=== PATIENT | female | born 1975 | race African-American/Black ===

== ENCOUNTER 2019-03-07 13:04 | Emergency (ER) | payer BC ==
[~2019-03-07] VITALS: Ht 175.3 cm; Wt 127.0 kg
--- NOTE | 2019-03-07 13:10 | NUR ---
ED Nurse Note: Pt was admitted to ED with the c/o lower abdominal pain x 4 days, verbalized she's .
--- NOTE | 2019-03-07 13:18 | NUR ---
ED Nurse Note: Placed pt on bed, sitting, on stable condition. Established IV line, blood was drawn.
--- NOTE | 2019-03-07 13:20 | NUR ---
ED Nurse Note: Specimen was sent to labs. Unable to collect urine specimen at this time.
[2019-03-07] MEDS ORDERED: Metoclopramide 10mg/2ml Inj IVP ONE (13:30)
--- NOTE | 2019-03-07 13:30 | NUR ---
ED Nurse Note: Started on IV hydration of NS 1liter; patent and infusing well.
--- NOTE | 2019-03-07 13:51 | NUR ---
ED Nurse Note: Pt went for US.
[2019-03-07 13:54] VITALS: BP 128/73
--- NOTE | 2019-03-07 14:29 | NUR ---
ED Nurse Note: Pt returned from US in stable condition.
--- NOTE | 2019-03-07 14:30 | NUR ---
ED Nurse Note: Pt return back from US, on stable condition.
[2019-03-07 14:45] LABS: ANION GAP 11 mmol/L (5-15); BLOOD UREA NITROGEN 8 mg/dL (7-18); CARBON DIOXIDE 24 MMOL/L (21-32); CHLORIDE 101 MMOL/L (98-107); CREATININE 0.6 MG/DL (0.55-1.30); POTASSIUM 3.7 MMOL/L (3.5-5.1); SODIUM 136 MMOL/L (136-145)
--- NOTE | 2019-03-07 14:45 | NUR ---
ED Nurse Note: Recollected blood for repeat CBC. Able to collect urine specimen; sent to labs.
[2019-03-07 14:49] LABS: ALANINE AMINOTRANSFERASE 21 U/L (12-78); ALBUMIN/GLOBULIN RATIO 0.7 (1.0-2.7); ALKALINE PHOSPHATASE 87 U/L (46-116); ASPARTATE AMINO TRANSFERASE 17 U/L (15-37); BILIRUBIN,TOTAL 0.2 MG/DL (0.2-1.0)
--- NOTE | 2019-03-07 14:54 | NUR ---
ED Nurse Note: Received hand-off report from AKHIL Ferrera.
--- NOTE | 2019-03-07 15:07 | NUR ---
ED Nurse Note: Confirmed repeat CBC with lab
[2019-03-07 15:31] LABS: BASOPHILS % (AUTO) 1.2 % (0.0-2.0); EOSINOPHILS % (AUTO) 1.4 % (0.0-3.0); HEMATOCRIT 32.4 % (37.0-47.0); LYMPHOCYTES % (AUTO) 33.6 % (20.0-45.0); MEAN CORPUSCULAR VOLUME 78 FL (80-99); MONOCYTES % (AUTO) 8.1 % (1.0-10.0); NEUTROPHILS % (AUTO) 55.7 % (45.0-75.0); PLATELET COUNT 228 K/UL (150-450); RED BLOOD COUNT 4.17 M/UL (4.20-5.40); RED CELL DISTRIBUTION WIDTH 13.3 % (11.6-14.8); WHITE BLOOD COUNT 5.3 K/UL (4.8-10.8)
[2019-03-07] MEDS ORDERED: TYLENOL EXTRA500 MG ORAL (15:43)
--- NOTE | 2019-03-07 15:43 | Emergency Room Report ---
History of Present Illness General Chief Complaint: Abdominal Pain Source: Patient Present Illness HPI 43-year-old female who is 4 months and G5, here complaining of 2 days of left lower quadrant abdominal pain rating a 7 out of 10 without radiation. Patient reports that she has a history of fibroids on the same side and reports that they are obscuring the left ovary. Patient had her last visit with [facility] 2 weeks ago and regular. Denies any vaginal discharge, spotting, bleeding, chest pain, headache, dizziness, syncope, shortness of breath. Has not taken medication for symptom relief. Patient is guarding in the left lower quadrant. Patient reports that she has history of 3 miscarriages which occurred around the same time when she was almost 3 or 4 months . Patient is compliant with taking vitamins, does not smoke, nor drink alcohol. Reports that the pain started when she was sitting at work Allergies: Coded Allergies: CODEINE (Verified Allergy, Unknown, 03/07/19) Patient History Past Medical History: see triage record Past Surgical History: unable to obtain Pertinent Family History: none Now: Yes : 5 Para: 1 Immunizations: UTD Reviewed Nursing Documentation: PMH: Agreed; PSxH: Agreed Nursing Documentation-PMH Past Medical History: No History, Except For Hx Asthma: Yes Review of Systems All Other Systems: negative except mentioned in HPI Physical Exam Vital Signs Date Time Temp Pulse Resp B/P (MAP) Pulse Ox O2 Delivery O2 Flow Rate FiO2 03/07/19 13:07 98.4 78 16 128/73 (91) 99 03/07/19 13:54 Room Air 100 Sp02 EP Interpretation: reviewed, normal General Appearance: no apparent distress, alert, GCS 15, non-toxic Head: normocephalic, atraumatic Eyes: bilateral eye normal inspection, bilateral eye PERRL ENT: hearing grossly normal, normal pharynx, no angioedema, normal voice Neck: full range of motion, supple, thyroid normal, no meningismus, supple/symm /no masses Respiratory: chest non-tender, lungs clear, normal breath sounds, no rhonchi, no respiratory distress, no retraction, speaking full sentences Cardiovascular #1: regular rate, rhythm, no edema, no murmur, normal capillary refill Cardiovascular #2: 2+ femoral (R), 2+ femoral (L) Gastrointestinal: normal bowel sounds, non tender, soft, no rebound, distended - Gravid, guarding - Left lower quadrant Rectal: deferred Genitourinary: no CVA tenderness Musculoskeletal: back normal, normal range of motion, no calf tenderness, pelvis stable, gait/station normal, non-tender Neurologic: alert, motor strength/tone normal, oriented x3, sensory intact, responsive, speech normal Psychiatric: judgement/insight normal, memory normal, mood/affect normal, no suicidal/homicidal ideation Skin: no rash Lymphatic: no adenopathy Medical Decision Making PA Attestation All my diagnosis and treatment plans were reviewed ad discussed with my supervising physician Dr. Bryant Diagnostic Impression: Primary Impression: Abdominal pain during Additional Impression: Uterine fibroid ER Course 43-year-old female who is 4 months and G5, here complaining of 2 days of left lower quadrant abdominal pain rating a 7 out of 10 without radiation. Patient reports that she has a history of fibroids on the same side and reports that they are obscuring the left ovary. Patient had her last visit with [facility] 2 weeks ago and regular. Denies any vaginal discharge, spotting, bleeding, chest pain, headache, dizziness, syncope, shortness of breath. Has not taken medication for symptom relief. Patient is guarding in the left lower quadrant. Patient reports that she has history of 3 miscarriages which occurred around the same time when she was almost 3 or 4 months . Patient is compliant with taking vitamins, does not smoke, nor drink alcohol. Reports that the pain started when she was sitting at work Ddx considered but are not limited to: appendicitis, cholecystis, gastritis, gastroenteritis, UTI, pyelonephritis, SBO, diverticulitis, threatened , ectopic , spontaneous , abdominal pain during , uterine fibroids Vital signs: are WNL, pt. is afebrile H&PE are most consistent with: Uterine fibroids, abdominal pain during ORDERS: CBC, CP, type and screen, UA, beta-hCG, OB ultrasound, Tylenol ED INTERVENTIONS: NS bolus, Reglan DISCHARGE: At this time pt. is stable for d/c to home. Will provide printed patient care instructions, and any necessary prescriptions. Care plan and follow up instructions have been discussed with the patient prior to discharge. Patient to follow-up with her primary care provider and [facility] if worsening symptoms return to emergency room sooner. Most likely the pain is secondary to uterine fibroids CT/MRI/US Diagnostic Results CT/MRI/US Diagnostic Results : Imaging Test Ordered: OB US Impression FHR 156, no subchorionic hemorrhage, uterine fibroids noted left adnexa obscuring ovarian cyst Last Vital Signs Date Time Temp Pulse Resp B/P (MAP) Pulse Ox O2 Delivery O2 Flow Rate FiO2 03/07/19 13:54 98.4 78 16 128/73 99 Room Air 03/07/19 13:54 100 Disposition: HOME, SELF-CARE Condition: Stable Scripts Acetaminophen* (TYLENOL EXTRA STRENGTH*) 500 Mg Tablet 500 MG ORAL Q6H PRN for Mild Pain/Temp > 100.5, #30 TAB 0 Refills Prov: Sharlene Tyler 03/07/19 Referrals: NON PHYSICIAN (PCP) Patient Instructions: Abdominal Pain During Additional Instructions: Follow-up with your [facility] regarding the fibroid and abdominal pain during . If worsening symptoms return to the emergency room. Avoid strenuous physical activity Sharlene Tyler Mar 07, 2019 15:43
[2019-03-07 15:47] LABS: APPEARANCE,URINE CLEAR; BILIRUBIN, URINE NEGATIVE (NEGATIVE); COLOR,URINE PALE YELLOW; GLUCOSE, URINE (UA) NEGATIVE (NEGATIVE); KETONES,URINE NEGATIVE (NEGATIVE); LEUKOCYTE ESTERASE ,URINE 1+ (NEGATIVE); NITRITE,URINE NEGATIVE (NEGATIVE); PH,URINE 6 (4.5-8.0); PROTEIN,URINE NEGATIVE (NEGATIVE); UROBILINOGEN,URINE NORMAL MG/DL (0.0-1.0)
--- NOTE | 2019-03-07 15:58 | Diagnostic Imaging Report ---
Indication: . Pelvic pain Technique: Grayscale and duplex Doppler imaging of the pelvis performed utilizing a scan. Patient refused the endovaginal exam. Comparison: None Findings: Single living IUP of 14 weeks gestational age demonstrated. Lie is transverse. heart motion demonstrated. Amniotic fluid is normal with NEAL of 13.73 cm. Placenta is posterior. anatomy not assessed. measurements: Biparietal diameter 2.42 cm, 14 weeks. Head circumference 9.57 cm, 14 weeks 3 days. Abdominal circumference 7.46 cm, 14 weeks. Femur length 1.34 cm, 14 weeks. IMPRESSION: Single living IUP 14 weeks gestational age. Note: A negative ultrasound evaluation does not insure well-being or positive outcome for the . monitoring including a nonstress test may be needed and clinical evaluation by [facility] is highly recommended.
[2019-03-07 16:11] VITALS: BP 132/84
--- NOTE | 2019-03-07 16:11 | NUR ---
ER DISCHARGE NOTE: Patient is cleared to be discharged per ERMD, pt is aox4, on room air, with stable vital signs. pt was given dc and prescription instructions, pt was able to verbalize understanding, pt id band and iv site removed without complications. pt is able to ambulate with steady gait. pt took all belongings. pt stable upon discharge.
== END 2019-03-07 16:11 | disposition home or self-care (01) ==
LOC: EMR 13:55
DX: O26.892 Other specified pregnancy related conditions, second trimester (principal); R10.32 Left lower quadrant pain; D25.9 Leiomyoma of uterus, unspecified; J45.909 Unspecified asthma, uncomplicated; Z3A.00 Weeks of gestation of pregnancy not specified; Z88.5 Allergy status to narcotic agent
CPT/HCPCS: 36415; 76805; 80053; 81003; 84702; 85025; 86850; 86900; 86901; 96361; 96374; 99284; J2765; J7030